=== PATIENT | female | born 1935 | race Caucasian/White ===

== ENCOUNTER 2019-11-18 16:33 | Outpatient (CLI) | payer MEDICARE, SELFPAY ==
--- NOTE | ~2019-11-18 | DEXA_ITS ---
Bone Density Report Name: Kassidy Ham Age: 83 Sex: Female Ethnicity: White Date of : 1935 Indication: osteopenia; height loss; cancer; hysterectomy; Referring Provider: EMILE LUNDY Study: Bone densitometry was performed. Exam Date: August 03, 2019 Accession number: [id number] Bone Density: Region BMD T-score Z-score Classification AP Spine (L1-L4) 0.881 -1.5 1.3 Osteopenia Femoral Neck (Left) 0.603 -2.2 0.2 Osteopenia Total Hip (Left) 0.861 -0.7 1.6 Normal Total Hip Bilateral Avg 0.859 -0.7 1.6 Normal Femoral Neck (Right) 0.648 -1.8 0.6 Osteopenia Total Hip (Right) 0.856 -0.7 1.5 Normal World Health Organization criteria for BMD impression classify patients as: Normal (T-score at or above -1.0), Osteopenia (T-score between -1.0 and -2.5), or Osteoporosis (T-score at or below -2.5). 10-year Fracture Risk(1): Major Osteoporotic Fracture 17% Hip Fracture 5.4% Reported Risk Factors: [place] (), Neck BMD=0.603, BMI=26.3 (1) FRAX(R) Version 3.08. Fracture probability calculated for an untreated patient. Fracture probability may be lower if the patient has received treatment. Previous Exams: Region Exam Age BMD T-score BMD Change BMD Change Date g/cm2 vs Baseline vs Previous AP Spine(L1-L4) 08/03/2019 83 0.881 -1.5 -0.137(-13.5%) -0.034(-3.7%)* 04/16/2017 81 0.915 -1.2 -0.103(-10.1%) 0.000(0.0%)# 09/28/2013 78 0.915 -1.2 -0.103(-10.1%) -0.094(-9.3%)# 04/02/2010 74 1.009 -0.3 -0.010(-0.9%) -0.004(-0.4%) 01/05/2008 72 1.013 -0.3 -0.005(-0.5%) -0.005(-0.5%) 10/16/2005 70 1.018 -0.3 Total Hip(Left) 08/03/2019 83 0.861 -0.7 -0.082(-8.7%)# -0.008(-0.9%) 04/16/2017 81 0.869 -0.6 -0.073(-7.8%)# -0.009(-1.1%)# 09/28/2013 78 0.878 -0.5 -0.064(-6.8%)# -0.019(-2.1%)# 04/02/2010 74 0.897 -0.4 -0.045(-4.8%)* -0.028(-3.1%)* 01/05/2008 72 0.925 -0.1 -0.017(-1.8%) -0.017(-1.8%) 10/16/2005 70 0.942 0.0 Total Hip(Right) 08/03/2019 83 0.856 -0.7 -0.089(-9.4%)# -0.071(-7.7%)* 04/16/2017 81 0.927 -0.1 -0.017(-1.9%)# 0.003(0.3%)# 09/28/2013 78 0.924 -0.1 -0.020(-2.1%)# -0.009(-1.0%)# 04/02/2010 74 0.934 -0.1 -0.011(-1.2%) -0.029(-3.0%)* 01/05/2008 72 0.963 0.2 0.018(1.9%) 0.018(1.9%) 10/16/2005 70 0.944 0.0 *Denotes significance at 95% confidence level, LSC for AP Spine = 0.022 g/cm2, LSC for Total Hip = 0.027 g/cm2 Clinical Information Provided by Patient:
== END 2019-11-18 16:34 | disposition home or self-care (01) ==
LOC: ANHIMG 16:33
PROVIDERS: PCP Family Medicine; Visit Provider Physician Assistant
DX: Z78.0 Asymptomatic menopausal state (principal); M85.88 Other specified disorders of bone density and structure, other site; M85.852 Other specified disorders of bone density and structure, left thigh; M85.851 Other specified disorders of bone density and structure, right thigh
CPT/HCPCS: 77080

== ENCOUNTER 2020-02-22 08:09 | Outpatient (CLI) | payer MEDICARE, SELFPAY ==
--- NOTE | ~2020-02-22 | CT_ITS ---
EXAMINATION: CT abdomen w con INDICATION: Abdominal pain, hyperlipidemia TECHNIQUE: Computed tomographic images of the abdomen were obtained after the administration of 100 c c of Omnipaque 350 intravenous contrast. The dose-length product (DLP) was 150.45 mGy-cm. Automated e xposure control and iterative reconstruction technique were employed. COMPARISON: None FINDINGS: The lung bases are clear. The heart size is normal. The liver, spleen, pancreas, gallbladde r Hypoattenuating lesions in the kidneys, measuring up to 5 mm in the right kidney, are too small to characterize but likely represent cysts. There is calcified atherosclerosis of the aorta and many of the other arteries. There are no pathologically enlarged abdominal lymph nodes. There is no free intr aperitoneal gas or evidence of bowel obstruction. There is severe lumbar spondylosis. IMPRESSION: 1. No CT correlate for the patient's symptoms. Reviewed, dictated and finalized at location A.
[2020-02-22 08:47] LABS: Estimated Glomerular Filt Rate > 60
== END 2020-02-22 08:10 | disposition home or self-care (01) ==
PROVIDERS: PCP Family Medicine; Visit Provider Physician Assistant
DX: E78.5 Hyperlipidemia, unspecified (principal); R10.84 Generalized abdominal pain
CPT/HCPCS: 36415; 74160; Q9967

== ENCOUNTER 2020-04-28 10:39 | Outpatient (CLI) | payer MEDICARE, SELFPAY ==
--- NOTE | ~2020-04-28 | MM_ITS ---
EXAMINATION: MM screening yissel BI w barry HISTORY: Screening mammogram TECHNIQUE: Craniocaudal and mediolateral oblique 3-D tomosynthesis images were obtained and synthetic 2-D images were generated. CAD analysis was submitted and interpreted. COMPARISON: 04/26/2019 bilateral digital screening mammogram 10/23/2018 diagnostic right digital mammogram 04/29/2018 diagnostic right digital mammogram 04/23/2018 bilateral digital screening mammogram BREAST PARENCHYMAL COMPOSITION: There are scattered areas of fibroglandular density. FINDINGS: Status post partial mastectomy on the left for history of breast cancer. There is suggestion of mild interval soft tissue thickening in the postoperative area compared to 04/08 and 04/26/2019. Diagnostic left mammogram is recommended, with ultrasound if required. Otherwise there is no evidence of interval suspicious mass, calcification, or architectural distortio n to suggest malignancy in either breast. There has been no other suspicious interval change. Occasio nal benign calcifications. IMPRESSION: 1. Status post left partial suggestion of mild interval soft tissue thickening in the upper outer fausto drant in the postoperative area since prior examinations.. 2. Diagnostic left mammogram is recommended, with ultrasound if required. BI-RADS Category 0: Incomplete: Needs additional imaging evaluation. Reviewed, dictated and finalized at location A. IMPRESSION: 1. Status post left partial suggestion of mild interval soft tissue thickening in the upper outer quadrant in the postoperative area since prior examinations. . 2. Diagnostic left mammogram is recommended, with ultrasound if required. BI-RADS Category 0: Incomplete: Needs additional imaging evaluation.
== END 2020-04-28 10:40 | disposition home or self-care (01) ==
PROVIDERS: PCP Family Medicine; Visit Provider Physician Assistant
DX: Z12.31 Encounter for screening mammogram for malignant neoplasm of breast (principal); R92.8 Other abnormal and inconclusive findings on diagnostic imaging of breast
CPT/HCPCS: 77063; 77067

== ENCOUNTER 2020-05-19 11:46 | Outpatient (CLI) | payer MEDICARE, SELFPAY ==
--- NOTE | ~2020-05-19 | MM_ITS ---
EXAMINATION: MM diagnostic mammo unilat LT HISTORY: Follow-up left breast asymmetry TECHNIQUE: Additional 3-D tomosynthesis images of the left breast were performed and synthetic 2-D im ages were generated. CAD analysis was submitted and interpreted. COMPARISON: Comparison to multiple prior studies sequentially, with oldest reviewed study dated 04/21. BREAST PARENCHYMAL COMPOSITION: Breast composed of scattered areas of fibroglandular density FINDINGS: . There are no suspicious calcifications or architectural distortion in the left breast to suggest malignancy. Stable architectural distortion of the left breast, consistent with previous lump ectomy. IMPRESSION: 1. No mammographic evidence for malignancy in the left breast. 2. Routine yearly screening mammogram and regular clinical breast examination are recommended. BI-RADS Category 2: Benign finding(s). Reviewed, dictated and finalized at location A. IMPRESSION: 1. No mammographic evidence for malignancy in the left breast. 2. Routine yearly screening mammogram and regular clinical breast examination a re recommended. BI-RADS Category 2: Benign finding(s).
== END 2020-05-19 11:47 | disposition home or self-care (01) ==
LOC: ANHIMG 11:48
PROVIDERS: PCP Family Medicine; Visit Provider Family Medicine
DX: N64.89 Other specified disorders of breast (principal)
CPT/HCPCS: 77065

== ENCOUNTER 2020-09-15 16:15 | Outpatient (CLI) | payer MEDICARE, SELFPAY ==
--- NOTE | ~2020-09-15 | XR_ITS ---
EXAMINATION: XR knee RT 3V DATE: 09/15/2020 16:43 INDICATION: Right knee pain. TECHNIQUE: 3 views of right knee were obtained. COMPARISON: None. FINDINGS: Bone alignment is normal. No fracture. There is mild tricompartmental osteoarthritis. There is chondrocalcinosis of the menisci. There is a small knee joint effusion. IMPRESSION: 1. Mild right knee osteoarthritis. 2. Small right knee joint effusion. Reviewed, dictated and finalized at location A. T RELATIONS COORDINATOR
== END 2020-09-15 16:16 | disposition home or self-care (01) ==
PROVIDERS: PCP Family Medicine; Visit Provider Family Medicine
DX: M25.561 Pain in right knee (principal); M17.11 Unilateral primary osteoarthritis, right knee; M25.461 Effusion, right knee
CPT/HCPCS: 73562

== ENCOUNTER 2020-09-25 10:43 | Outpatient (CLI) | payer MEDICARE, SELFPAY ==
--- NOTE | ~2020-09-25 | US_ITS ---
EXAMINATION: US right upper quadrant EXAM DATE: 09/25/2020 11:44 INDICATION: abdominal pain, generalized . TECHNIQUE: Multiple grayscale and Doppler images of the abdomen right upper quadrant were obtained (b y a technologist who performed the scan) and subsequently reviewed. There is no prior study for nelson solitario. FINDINGS: The pancreatic head and body are normal in appearance. The pancreatic tail is not visualized. The l iver has normal echogenicity and contour. There are no focal liver lesions identified. There is no evidence of intrahepatic biliary duct dilation. Portal venous flow was seen in the hepatopedal, nor mal direction and has normal Doppler waveform. No right-sided hydronephrosis. Common bile duct measures 4 mm, which is normal. The gallbladder wall is normal in thickness, with ex pected amount of distention. No sonographic evidence of pericholecystic fluid. Echogenic structure suspected to be a polyp measuring 6 mm. No cholelithiasis suspected. Technologist performing exam re ports patient did not demonstrate sonographic Walls's sign. Please note that this sign is less reli able in patients who have received pain medication. IMPRESSION: Small gallbladder polyp; recommend 6-12 month follow-up right upper quadrant sonogram. Reviewed, dictated and finalized at location A. ICAL TECHNICIAN
== END 2020-09-25 10:44 | disposition home or self-care (01) ==
PROVIDERS: PCP Family Medicine; Visit Provider Physician Assistant
DX: R10.84 Generalized abdominal pain (principal); K82.4 Cholesterolosis of gallbladder
CPT/HCPCS: 76705

== ENCOUNTER 2021-05-24 15:14 | Outpatient (CLI) | payer MEDICARE, SELFPAY ==
--- NOTE | ~2021-05-24 | MM_ITS ---
EXAMINATION: MM screening yissel BI w barry HISTORY: Screening TECHNIQUE: Craniocaudal and mediolateral oblique 3-D tomosynthesis images were obtained and synthetic 2-D images were generated. CAD analysis was submitted and interpreted. COMPARISON: Comparison to multiple prior studies sequentially, with oldest reviewed study dated 04/23. BREAST PARENCHYMAL COMPOSITION: There are scattered areas of fibroglandular density. FINDINGS: There is no evidence of suspicious mass, calcification, or architectural distortion to sugg est malignancy in either breast. There has been no suspicious interval change. IMPRESSION: 1. No mammographic evidence of malignancy. 2. Recommend routine screening mammography in one year. BI-RADS Category 1: Negative Reviewed, dictated and finalized at location A.
== END 2021-05-24 15:15 | disposition home or self-care (01) ==
PROVIDERS: PCP Family Medicine; Visit Provider Physician Assistant
DX: Z12.31 Encounter for screening mammogram for malignant neoplasm of breast (principal)
CPT/HCPCS: 77063; 77067

== ENCOUNTER 2022-04-15 10:56 | Outpatient (CLI) | payer MEDICARE, SELFPAY ==
--- NOTE | ~2022-04-15 | MMUS_ITS ---
EXAMINATION: MM diagnostic yissel RT w barry, US breast RT limited HISTORY: Palpable lump of the lower inner quadrant of the right breast TECHNIQUE: Craniocaudal, mediolateral, and mediolateral oblique 3-D tomosynthesis images of the right breast were performed and synthetic 2-D images were generated. CAD analysis was submitted and interp reted. High resolution limited right breast ultrasound was performed. COMPARISON: 05/24/2021, 04/28/2020, 04/26/2019 BREAST PARENCHYMAL COMPOSITION: The breasts are heterogeneously dense, which may obscure small masses . FINDINGS: MAMMOGRAPHIC FINDINGS: There is a chronic asymmetry of the inner right breast on the craniocaudal view. No mammographic danial elate is identified for the reported palpable abnormality of concern. ULTRASOUND: There is no evidence of focal abnormal solid or cystic mass in the vicinity of the reported palpable abnormality of concern. IMPRESSION: 1. No specific mammographic or sonographic correlate is identified for the reported palpable abnormal ity of concern. Further evaluation at this time should be based on clinical assessment. Continued fol low-up physical examination is recommended. 2. Recommend annual screening mammography while the patient remains in good health. BI-RADS Category 2: Benign finding(s). Reviewed, dictated and finalized at location A. IMPRESSION: 1. No specific mammographic or sonographic correlate is identified for the repo rted palpable abnormality of concern. Further evaluation at this time should be based on clinical assessment. Continued follow-up physical examination is erwin mmended. 2. Recommend annual screening mammography while the patient remains in good hea lth. BI-RADS Category 2: Benign finding(s).
== END 2022-04-15 10:57 | disposition home or self-care (01) ==
PROVIDERS: PCP Family Medicine; Visit Provider Physician Assistant
DX: N63.14 Unspecified lump in the right breast, lower inner quadrant (principal)
CPT/HCPCS: 76642; 77061; 77065; G0279

== ENCOUNTER 2022-07-26 08:58 | Outpatient (CLI) | payer MEDICARE, SELFPAY ==
--- NOTE | ~2022-07-26 | MM_ITS ---
EXAMINATION: MM screening [facility] BI w barry HISTORY: Screening TECHNIQUE: Craniocaudal and mediolateral oblique 3-D tomosynthesis images were obtained and synthetic 2-D images were generated. CAD analysis was submitted and interpreted. COMPARISON: Comparison to multiple prior studies sequentially, with oldest reviewed study dated 10/23. BREAST PARENCHYMAL COMPOSITION: There are scattered areas of fibroglandular density. FINDINGS: Stable asymmetries and benign appearing breast calcifications. There is no evidence of susp icious mass, calcification, or architectural distortion to suggest malignancy in either breast. There has been no suspicious interval change. IMPRESSION: 1. No mammographic evidence of malignancy. 2. Recommend routine screening mammography in one year. BI-RADS Category 2: Benign finding(s). Reviewed, dictated and finalized at location A. S REPRESENTATIVE AIRCRAFT
== END 2022-07-26 08:59 | disposition home or self-care (01) ==
PROVIDERS: PCP Family Medicine; Visit Provider Physician Assistant
DX: Z12.31 Encounter for screening mammogram for malignant neoplasm of breast (principal)
CPT/HCPCS: 77063; 77067

== ENCOUNTER 2022-11-01 11:55 | Outpatient (CLI) | payer MEDICARE, SELFPAY ==
--- NOTE | ~2022-11-01 | XR_ITS ---
XR knee LT 3V 11/01/2022 12:38 Indication: Left knee pain Procedure: 3 views left knee Comparison: No prior studies for comparison. Findings: There is tricompartment osteoarthritis. There is chondrocalcinosis. Osteopenia. No acute fr acture, subluxation or dislocation. No significant joint effusion. Impression: 1: Mild-moderate tricompartment osteoarthritis of the left knee. Reviewed, dictated and finalized at location B. T RECORDER Impression: 1: Mild-moderate tricompartment osteoarthritis of the left knee.
== END 2022-11-01 11:56 | disposition home or self-care (01) ==
PROVIDERS: PCP Family Medicine; Visit Provider Physician Assistant
DX: M17.12 Unilateral primary osteoarthritis, left knee (principal); M25.562 Pain in left knee
CPT/HCPCS: 73562

== ENCOUNTER 2023-09-30 08:42 | Outpatient (CLI) | payer MEDICARE, SELFPAY ==
--- NOTE | ~2023-09-30 | US_ITS ---
US right upper quadrant INDICATION: Cholesterolosis of the gallbladder PROCEDURE: Realtime right upper abdominal ultrasound. COMPARISON: No prior studies for comparison. FINDINGS: The pancreas is normal without focal mass or pancreatic ductal dilation. Liver echotexture is normal without focal mass or intrahepatic biliary dilatation. There is normal directional flow i n the portal vein. There are gallbladder polyps measuring up to 7 mm. There is gallbladder sludge. Common bile duct phylicia ures 4 mm. No sonographic Walls's sign. IMPRESSION: 1: Gallbladder polyps measuring up to 7 mm. Gallbladder sludge. No definitive gallstones. Reviewed, dictated and finalized at location L. SITTER IMPRESSION: 1: Gallbladder polyps measuring up to 7 mm. Gallbladder sludge. No definitive g allstones.
== END 2023-09-30 08:43 | disposition home or self-care (01) ==
PROVIDERS: PCP Family Medicine; Visit Provider Physician Assistant
DX: K82.4 Cholesterolosis of gallbladder (principal)
CPT/HCPCS: 76705

== ENCOUNTER 2023-10-03 07:57 | Outpatient (CLI) | payer MEDICARE, SELFPAY ==
--- NOTE | ~2023-10-03 | NM_ITS ---
EXAMINATION: NM hepatobiliary wo pharm DATE: 10/03/2023 10:45 INDICATION: Other specified disease of gallbladder. COMPARISON: Ultrasound dated 09/30/2023 TECHNIQUE: 4.9 mCi Tc-99m mebrofenin (Choletec) was administered intravenously. Scintigraphic images of the abdomen were obtained for one hour. At the 1 hour time point, the patient drank 8 oz Ensure, and imaging was continued for 60 minutes. Gallbladder ejection fraction was calculated by the technol ogist. FINDINGS: There is normal clearance of radiotracer from the blood pool. There is homogeneous tracer u ptake by the liver. Activity progresses to the bowel and gallbladder. The gallbladder ejection fract ion (GBEF) is 13%. Note that with this technique, normal GBEF >= 33%. IMPRESSION: 1. Gallbladder ejection fraction is below the normal range which could be seen with gallbladder dysf unction or chronic cholecystitis in the appropriate clinical setting. Reviewed, dictated and finalized at location A. MATIC CORN GRINDER OPERATOR IMPRESSION: 1. Gallbladder ejection fraction is below the normal range which could be seen with gallbladder dysfunction or chronic cholecystitis in the appropriate clini tobi setting.
== END 2023-10-03 07:58 | disposition home or self-care (01) ==
LOC: ANHIMG 07:59
PROVIDERS: PCP Family Medicine; Visit Provider Physician Assistant
DX: K82.8 Other specified diseases of gallbladder (principal)
CPT/HCPCS: 78226; A9537

== ENCOUNTER 2024-04-19 07:40 | Outpatient (CLI) | payer MEDICARE, SELFPAY ==
--- NOTE | ~2024-04-19 | US_ITS ---
EXAMINATION: US abdomen limited DATE: 04/19/2024 08:32 INDICATION: Abnormal findings on diagnostic imaging of the liver TECHNIQUE: Multiple grayscale and Doppler ultrasound images of the abdomen were obtained. COMPARISON: 09/30/2023 FINDINGS: The pancreatic head and body are normal in appearance. The pancreatic tail is not visualized. There is some scattered atherosclerotic plaque along the visualized portion of the normal caliber abdominal aorta. Visualized inferior vena cava is normal. Liver has normal echogenicity and contour, with a sm ooth surface. No liver lesion identified. No intrahepatic biliary duct dilation suspected. Portal sharda ous flow was seen in the hepatopetal, normal direction and has normal Doppler waveform. The gallbladd er is normal in appearance. There are several echogenic nodules along the dependent wall of the gallb ladder which change in position and configuration on the decubitus versus the supine imaging. The lar gest measures 9 mm in maximal diameter with subtle posterior acoustic shadowing consistent with a gal lstone. The remaining smaller nodules are without definitive posterior acoustic shadowing and could r epresent either additional tiny gallstones or sludge. The common bile duct measures 4-5 mm, which is normal. Sonographic Walls sign was reported as negative by the bakery chef. IMPRESSION: 1. Cholelithiasis. Otherwise normal gallbladder with no intrahepatic biliary ductal dilation. Reviewed, dictated and finalized at location A. IMPRESSION: 1. Cholelithiasis. Otherwise normal gallbladder with no intrahepatic biliary du ctal dilation.
== END 2024-04-19 07:41 | disposition home or self-care (01) ==
PROVIDERS: PCP Family Medicine; Visit Provider Surgery
DX: K80.20 Calculus of gallbladder without cholecystitis without obstruction (principal); R93.2 Abnormal findings on diagnostic imaging of liver and biliary tract
CPT/HCPCS: 76705

== ENCOUNTER 2024-04-21 15:41 | Emergency (ER) | payer MEDICARE, SELFPAY ==
--- NOTE | 2024-04-21 15:55 | ED.URI ---
HPI - URI/Sore Throat General Chief Complaint: Upper Respiratory Infection Stated Complaint: possible COVID Time Seen by Provider: 04/21/24 15:55 History of Present Illness HPI Narrative: Patient presents with complaints of body aches, runny nose, cough. Symptoms have been present for 2 days. She reports that she took a COVID test at home, but that it was so she does not trust the results. She is requesting a new COVID test. She denies any shortness of breath. temperature at home upon awakening this morning was 100.5. She reports her worst symptoms are the body aches and runny nose. Voices no other concerns or complaints. Is having moderate relief with darshan Related Data Home Medications Medication Instructions Recorded Confirmed travoprost 0.004 % eye drops 1 drp EACH EYE DAILY 10/23/22 04/21/24 hyoscyamine sulfate 0.125 mg tablet 0.125 mg PO BID 04/21/24 04/21/24 Allergies Allergy/AdvReac Type Severity Reaction Status Date / Time hydrocodone AdvReac Intermediate Swelling Verified 04/21/24 15:47 methazolamide AdvReac Intermediate Swelling Verified 04/21/24 16:02 piroxicam AdvReac Intermediate ANKLE Verified 04/21/24 15:47 SWELLING timolol AdvReac Intermediate RED Verified 04/21/24 15:47 SWOLLEN EYES duloxetine AdvReac Mild Hives Verified 04/21/24 15:47 pollen extracts AdvReac Mild Itching Verified 04/21/24 15:47 DULOXETINE HCL AdvReac Intermediate CONFUSION Uncoded 04/21/24 15:47 Review of Systems Review of Systems: All systems reviewed & are unremarkable except as noted in HPI and below Constitutional: Constitutional: Reports no additional constitutional complaints, Reports body ache(s), Reports fever(s) and Reports headache(s) ENT: Reports system reviewed and no additional complaints, except as documented, Reports nasal congestion and Reports nasal discharge Cardiovascular: Cardiovascular: Reports no additional cardiovascular complaints Respiratory: Respiratory: Reports no additional respiratory complaints Gastrointestinal: Gastrointestinal: Reports no additional gastrointestinal complaints [facility] Past Medical History Medical History Absolute glaucoma, unspecified eye Allergic rhinitis, unspecified Atherosclerotic heart disease of [place] coronary artery without angina pectoris Diverticulosis Fibromyalgia Generalized osteoarthritis History of foot fracture mildly displaced oblique left 5th metatarsal shaft Hyperlipidemia, unspecified Insomnia, unspecified Irritable bowel syndrome with diarrhea Major depressive disorder, recurrent, moderate Personal history of malignant neoplasm of breast left breast Vitamin D deficiency, unspecified Vulvodynia Surgical History Surgical History H/O partial mastectomy left 05/2012 H/O: hysterectomy History of left cataract surgery 05/05/2013 History of right cataract surgery 2012 S/P breast biopsy, left 05/2012 S/P trigger finger release 01/03/2021 Family History Family History Sibling Family history of malignant neoplasm of breast in first degree relative, Onset Age: 58 Social History Social History Smoking status: Former smoker Tobacco type: cigarettes Second hand tobacco smoke exposure: No Smoking end date: 09/08/88 Alcohol intake: never Substance use: never Substance use type: does not use Lack of Transportation: No Lack of Food: Never True Current Housing: I Have Housing Concerned About Future Housing: No Difficulty Paying Gas/Electric Bills: No Difficulty Paying for Meds: No Currently Unemployed: YES Difficulty w/ Childcare or Family Care: No Living arrangements: with family Occupation/Education: retired Gender identity (if verbalized by the patient): Female Sexual O
[2024-04-21 15:56] VITALS: BP 156/68; PULSE 96; RESP 18; TEMP 37.7; O2SAT 99
== END 2024-04-21 16:12 | disposition home or self-care (01) ==
PROVIDERS: Emergency Provider Nurse Practitioner Family; PCP Family Medicine
DX: U07.1 COVID-19 (principal); Z87.891 Personal history of nicotine dependence; I25.10 Atherosclerotic heart disease of native coronary artery without angina pectoris; E78.5 Hyperlipidemia, unspecified; M19.90 Unspecified osteoarthritis, unspecified site; M79.7 Fibromyalgia; H44.519 Absolute glaucoma, unspecified eye; Z85.3 Personal history of malignant neoplasm of breast; Z90.12 Acquired absence of left breast and nipple
CPT/HCPCS: 87426; 99213; G0463

== ENCOUNTER 2025-04-01 13:40 | Outpatient (CLI) | payer MEDICARE, SELFPAY ==
--- NOTE | ~2025-04-01 | MM_ITS ---
EXAMINATION: MM screening [facility] BI w barry HISTORY: Screening TECHNIQUE: Craniocaudal and mediolateral oblique 3-D tomosynthesis images were obtained and synthetic 2-D images were generated. CAD analysis was submitted and interpreted. COMPARISON: Comparison to multiple prior studies sequentially, with oldest reviewed study dated 04/26. BREAST PARENCHYMAL COMPOSITION: Not dense: There are scattered areas of fibroglandular density. FINDINGS: There is no evidence of suspicious mass, calcification, or architectural distortion to sugg est malignancy in either breast. There has been no suspicious interval change. IMPRESSION: 1. No mammographic evidence of malignancy. 2. Recommend routine screening mammography in one year. BI-RADS Category 1: Negative Reviewed, dictated and finalized at location A.
--- OUTSIDE RECORDS SUMMARY | 2025-04-01 13:43 | XMS_ITS | Continuity of Care Document ---
Author Organization [facility] Address [address] [place] [address] Phone Care Team Providers Care Beam Department Supervisor Name Role Phone Johnson Robinson DUNN Unavailable Unavailable Allergies, Adverse Reactions, Alerts Substance Reaction Status Criticality TIMOLOL MALEATE Active No Informati on BRIMONIDINE TARTRATE Active No Info rmation hydrocodone Active No Information piroxicam Active No Information DULOXETINE HCL Active No Informatio n methazolamide Active No Information timolol Active No Information Medications Medication Instructions Dosage Effective Dates (start - stop) Status Comments STOOL SOFTENER (unknown strength) Not Available - Active GAS-X (unknown strength) Not Available - Active pregabalin 25 mg capsule - Active Rhopressa 0.02 % eye drops - Active MAGNESIUM (unknown strength) Not Available - Active DOCUSATE SODIUM (unknown strength) take 1 capsule by oral route every day at bedtime as needed Not Available - Active benzonatate 200 mg capsule take 1 capsule by oral route 3 times every day as needed for cough 200 MG - Active AFRIN (unknown strength) spray 2 spray by intranasal route 2 times every day in each nostril in the morning and evening Not Available - Active Mapap (acetaminophen) 500 mg capsule take 2 capsule by oral route every 6 hours as needed 1000 MG - Active POLYETHYLENE GLYCOL 3350 (unknown strength) Not Available - Active IMODIUM A-D (unknown strength) take 2 capsule by oral route after 1st loose stool, followed by 1 capsule after each subsequent loose stool not to exceed 16 mg/day Not Available - Active MELATONIN (unknown strength) Not Available - Active ULTRA SALINE (unknown strength) Not Available - Active loratadine 10 mg tablet take 1 tablet by oral route every day 10 MG - Active NAC (unknown strength) Not Available - Active Pineapple Extract 100 mg chewable tablet - Active QUERCETIN (unknown strength) Not Available - Active VITAMIN C (unknown strength) Not Available - Active calcium 600 mg (as carbonate)-vitamin D3 20 mcg (800 unit) tablet - Active ARTIFICIAL TEARS (unknown strength) Not Available - Active ursodiol 300 mg capsule take (4MG/KG) by oral route 2 times every day 4 MG/KG - Active pilocarpine 2 % eye drops instill 1 drop by ophthalmic route every 4 hours into affected eye(s) 1.00 drop - Active memantine 10 mg tablet take 1 tablet by oral route 2 times every day 10 MG - Active Celebrex 100 mg capsule take 1 capsule by oral route every day 100 MG - Active flaxseed oil 1,000 mg capsule - Active VITAMIN B-12 (unknown strength) Not Available - Active biotin 10,000 mcg capsule - Active Travatan Z 0.004 % eye drops instill 1 drop by ophthalmic route every day into affected eye(s) in the evening 1.00 drop - Active ibuprofen 200 mg tablet - Active PSEUDOEPHEDRINE HCL (unknown strength) take 2 tablet by oral route every 6 hours as needed Not Available - Active Vitamin D3 25 mcg (1,000 unit) capsule - Active multivitamin tablet - Active CALCIUM (unknown strength) Not Available - Active PROCTOCREAM-HC (unknown strength) Not Available - Active SUDAFED 12 HOUR (unknown strength) Not Available - Active CELEBREX (unknown strength) Not Available - No Longer Active TRAVATAN Z (unknown strength) Not Available - No Longer Active Vitamin B-12 1,000 mcg/mL oral drops - No Longer Active VITAMIN B-12 (unknown strength) Not Available - No Longer Active FLAXSEED OIL (unknown strength) Not Available - No Longer Active BIOTIN (unknown strength) Not Available - No Longer Active Procedures Procedure Date RADEX FNGR MINIMUM 2 VIEWS Drugs unclassified injection Betamethasone acet&sod phosp INJ TENDON SHEATH/LIGAMENT OFFICE/OUTPATIENT VISIT EST OFFICE/OUTPATIENT VISIT EST Drugs unclassified injection Betamethasone acet&sod phosp INJ TENDON SHEATH/LIGAMENT OFFICE/OUTPATIENT VISIT EST Lidocaine injection Betamethasone acet&sod phosp INJ TENDON SHEATH/LIGAMENT Triamcinolone acet inj NOS Drugs unclassified injection INJ TENDON SHEATH/LIGAMENT OFFICE/OUTPATIENT VISIT EST POSTOP FOLLOW-UP VISIT INCISE FINGER TENDON SHEATH OFFICE/OUTPATIENT VISIT EST RADEX OSCAR COMPL MINIMUM 2 VIEWS 020 RADEX OSCAR COMPL MINIMUM 2 VIEWS 020 OFFICE/OUTPATIENT VISIT EST RADEX OSCAR COMPL MINIMUM 2 VIEWS 019 OFFICE/OUTPATIENT VISIT EST RADEX OSCAR COMPL MINIMUM 2 VIEWS 018 OFFICE/OUTPATIENT VISIT EST RADEX OSCAR COMPL MINIMUM 2 VIEWS 017 OFFICE/OUTPATIENT VISIT EST RADEX OSCAR COMPL MINIMUM 2 VIEWS 017 POSTOP FOLLOW-UP VISIT RADEX OSCAR COMPL MINIMUM 2 VIEWS 017 POSTOP FOLLOW-UP VISIT POSTOP FOLLOW-UP VISIT RADEX OSCAR COMPL MINIMUM 2 VIEWS 017 OFFICE/OUTPATIENT VISIT EST MRI ANY JT UXTR C-MATRL RADEX OSCAR COMPL MINIMUM 2 VIEWS 017 OFFICE/OUTPATIENT VISIT EST OFFICE/OUTPATIENT VISIT EST OFFICE/OUTPATIENT VISIT EST POSTOP FOLLOW-UP VISIT OFFICE/OUTPATIENT VISIT EST POSTOP FOLLOW-UP VISIT OFFICE/OUTPATIENT VISIT EST MU Reporting OFFICE/OUTPATIENT VISIT EST Advance Directives Directive Yes / No Effective Date File Name No Information Encounters Encounter Description Practice Location Reason(s) For Visit Diagnoses Date Provider Providers Copied on Encounter [facility], [address], [place], [address], [place] tel:[phone] [facility] No Information 5 Johnson Robinson. [address], [place], [place], [id number], [place]. tel:[phone] OFFICE/OUTPA TIENT VISIT EST [facility], [address], [place], [address], [place] tel:[phone] [facility] Pain in right finger(s)Trig astrid middle finger of right hand 5 Johnson Robinson. [address], [place], [place], [id number], [place]. tel:[phone] Referring Provider: Saji Vale, [address] [place] [address], [address]. tel:[phone] OFFICE/OUTPA TIENT VISIT EST [facility], [address], [place], [address], [place] tel:[phone] [facility] Trigger ring finger of right hand 4 Elizabeth Bowers. [address], [place], [place], [address], [place]. tel:[phone] Referring Provider: Saji Vale, [address] [place] [address], [address]. tel:[phone] OFFICE/OUTPA TIENT VISIT EST [facility], [address], [place], [address], [place] tel:[phone] [facility] Trigger ring finger of right hand 3 Elizabeth Bowers. [address], [place], [place], [id number], [place]. tel:[phone] Referring Provider: Saji Vale, [address] [place], [address]. tel:[phone] OFFICE/OUTPA TIENT VISIT EST [facility], [address] [address], [place], [address], [place] tel:[phone] [facility] Trigger ring finger of right hand 1 Brittny Palacios. [address] [facility], [place], [place], [id number]. tel:[phone] Referring Provider: Saji Vale, [address] [place], [address]. tel:[phone] [facility], [address] [address], [place], [address], [place] tel:[phone] [facility] Trigger thumb, left thumb 1 Brittny Palacios. [address], [place], [id number]. tel:[phone] [facility], [address] [address], [place], [address], [place] tel:[phone] [facility] Trigger thumb, left thumb 1 Brittny Palacios. [address] [facility], [place], [place], [id number]. tel:[phone] OFFICE/OUTPA TIENT VISIT EST [facility], [address] [address], [place], [address], [place] tel:[phone] [facility] Trigger finger of left thumb Dec- 1 Brittny Palacios. [address], [place], [id number]. tel:[phone] OFFICE/OUTPA TIENT VISIT EST [facility], [address] [address], [place], [address], [place] tel:[phone] [facility] Presence of left artificial shoulder jointAftercar e following left shoulder joint replacement surgeryRight shoulder pain, unspecified chronicityImp ingement syndrome of right shoulder Hardeep-0 0 Fady Valadez. [address] [facility] [address], [place], [place], [id number]. tel:[phone] Referring Provider: Saji Vale, [address], [place], [address]. tel:[phone] OFFICE/OUTPA TIENT VISIT EST [facility], [address], [place], [address], [place] tel:[phone] [facility] Aftercare following left shoulder joint replacement surgeryElevat ed blood-pressur e reading, w/o diagnosis of htnPresence of left artificial shoulder joint 9 Jamie Anderson. [address], [place], [place], [address]. tel:[phone] OFFICE/OUTPA TIENT VISIT EST [facility], [address] [facility] [address], [place], [address], [place] tel:[phone] [facility] Aftercare following left shoulder joint replacement surgery 8 Jamie Anderson. [address], [place], [place], [address]. tel:[phone] OFFICE/OUTPA TIENT VISIT EST [facility], [address] [facility] [address], [place], [address], [place] tel:[phone] [facility] Aftercare following left shoulder joint replacement surgery 7 Fady Valadez. [address], [place], [place], [address]. tel:[phone] [facility], [address] [facility] [address], [place], [address], [place] tel:[phone] [facility] Aftercare following left shoulder joint replacement surgery 7 Federico Mai. [address], [place], [place], [address]. tel:[phone] [facility], [address] [facility] [address], [place], [address], [place] tel:[phone] [facility] Aftercare following left shoulder joint replacement surgery May-0 4-201 7 Federico Mai. [address], [place], [place], [address]. tel:[phone] [facility], [address] [facility] [address], [place], [address], [place] tel:[phone] [facility] Aftercare following left shoulder joint replacement surgeryPresen ce of left artificial shoulder joint 7 Fady Valadez. [address], [place], [place], [address]. tel:[phone] [facility], [address] [facility] [address], [place], [address], [place] tel:[phone] [facility] Complete tear of left rotator cuff 7 Fady Valadez. [address], [place], [place], [address]. tel:[phone] OFFICE/OUTPA TIENT VISIT EST [facility], [address] [facility] [facility] [address], [place], [address], [place] tel:[phone] [facility] Complete tear of left rotator cuff 7 Fady Valadez. [address], [place], [place], [address]. tel:[phone] [facility], [address] [facility] [address], [place], [address], [place] tel:[phone] [facility] No Information 7 No Information Referring Provider: Philip Mart, [address], [place], [address]. tel:[phone] OFFICE/OUTPA TIENT VISIT EST [facility], [address] [facility], [place], [address], [place] tel:[phone] [facility] Acute pain of left shoulder 7 Brittny Palacios. [address], [place], [place], [address]. tel:[phone] OFFICE/OUTPA TIENT VISIT EST [facility], [address] [address], [place], [address], [place] tel:[phone] [facility] Acute pain of left shoulder 3 6 Brittny Palacios. [address] [facility], [place], [place], [address]. tel:[phone] OFFICE/OUTPA TIENT VISIT EST [facility], [address] [address], [place], [address], [place] tel:[phone] [facility] Acute pain of left shoulder Nov- 6 Brittny Palacios. [address] [facility], [place], [place], [address]. tel:[phone] OFFICE/OUTPA TIENT VISIT EST [facility], [address] [address], [place], [address], [place] tel:[phone] [facility] Aftercare following surgeryTrigge r finger (acquired)Oscar ulder pain Dec-0 2-201 5 Brittny Palacios. [address] [facility], [place], [place], [address]. tel:[phone] [facility], [address] [address], [place], [address], [place] tel:[phone] [facility] Aftercare following surgeryTrigge r finger (acquired) Oct- 2- 5 Brittny Palacios. [address] [facility], [place], [place], [address]. tel:[phone] OFFICE/OUTPA TIENT VISIT EST [facility], [address] [address], [place], [address], [place] tel:[phone] [facility] Trigger finger (acquired)Oscar ulder pain 6- 5 Brittny Palacios. [address] [facility], [place], [place], [address]. tel:[phone] OFFICE/OUTPA TIENT VISIT EST [facility], [address] [address], [place], [address], [place] tel:[phone] [facility] Trigger finger (acquired) 3 Brittny Palacios. [address] [place], [place], [address]. tel:[phone] [facility], [address] [address], [place], [address], [place] tel:[phone] [facility] bilateral hip pain (chief complaint) Enthesopathy of hip region 2 Brittny Palacios. [address] [facility] [address] , [place], [place], [address]. tel:[phone] [facility], [address] [address], [place], [address], [place] tel:[phone] [facility] Carpal Tunnel SyndromeTrigg er finger (acquired) 2 Brittny Palacios. [address] [facility] [place], [address]. tel:[phone] Family History Family Member Type Diagnosis Age At Onset Sister Problem Cancer, breast Brother Problem (finding) Problem (finding) Family history of multi ple sclerosis Problem (finding) Family history of alzhe braulio's disease Brother Problem Cancer, prostate Mother Problem Cardiovascular disease Problem (finding) Family history of malignant neoplasm of male breast Immunizations Vaccine Date Status Comments Pneumo (2 yrs or older)(PPV) administered Source: Other Provider Payers Payer name Insurance type Covered green party ID Authoriza tion(s) Medicare E2 OT [id number] [employer] OT [id number] Social History Type Description Quantity Date Captured Comments Sex Female Smoking Status No Information Chief Complaint And Reason For Visit No Information Reason For Referral Reason For Referral No Information Plan Of Treatment Date Type Action Status Goal Tobacco cessation counseling completed Goal Tobacco cessation counseling Deleted Goal Tobacco cessation counseling Deleted Goal Tobacco cessation counseling completed Goal Tobacco cessation counseling completed Referral Ordered: RADEX FNGR MINIMUM 2 VIEWS RT middle finger ordered Referral Ordered: RADEX OSCAR COMPL MINIMUM 2 VIEWS RT ordered Referral Ordered: MRI ANY JT UXTR C-MATRL LT shoulder Appointment date/timeframe: 10/02/2016 ordered Referral Ordered: RADEX OSCAR COMPL MINIMUM 2 VIEWS LT shoulder ordered Referral Ordered: RADEX OSCAR COMPL MINIMUM 2 VIEWS LT ordered Referral Ordered: RADEX HIPS BI 2 VIEWS ANTEROPOST PELVIS Bilateral hip ordered History Of Present Illness Encounter Date Complaint History Of Prese nt Illness No Information Functional Status Date Functional Assessmen t No Information Instructions Date Instruction Additional Infor mation Activity as tolerated. Related t o Trigger ring finger of right hand Activity as tolerated. Related t o Trigger thumb, left thumb Weight bearing status as directe d. Related to Right shoulder pain, unspecified chronicity Call for increase in pain Relate d to Right shoulder pain, unspecified chronicity Discussed treatment options Rela aleshia to Right shoulder pain, unspecified chronicity Home exercise program. Related t o Right shoulder pain, unspecified chronicity Weight bearing status as directe d. Related to Aftercare following left shoulder joint replacement surgery Discussed treatment options Rela aleshia to Aftercare following left shoulder joint replacement surgery Weight bearing status as directe d. Related to Aftercare following left shoulder joint replacement surgery Home exercise program. Related t o Aftercare following left shoulder joint replacement surgery Weight bearing status as directe d. Related to Aftercare following left shoulder joint replacement surgery Home exercise program. Related t o Aftercare following left shoulder joint replacement surgery Weight bearing status as directe d. Related to Aftercare following left shoulder joint replacement surgery Weight bearing status as directe d. Related to Aftercare following left shoulder joint replacement surgery Home exercise program. Related t o Aftercare following left shoulder joint replacement surgery Discussed treatment options Rela aleshia to Complete tear of left rotator cuff Weight bearing status as directe d. Related to Complete tear of left rotator cuff Rest, ice and elevate. Related t o Acute pain of left shoulder Rest, ice and elevate. Related t o Shoulder pain Activity as tolerated. Related t o Trigger finger (acquired) Activity as tolerated. Related t o Trigger finger (acquired) Activity as tolerated. Related t o Trigger finger (acquired) Rest, ice and elevate. Related t o Shoulder pain Activity as tolerated Physical activity counseling Rel ated to Dietary surveillance counseling Assessments Type Assessment Date No Information Patient Care Teams Name Effective Dates (start - stop) Status Members No Information
--- OUTSIDE RECORDS SUMMARY | 2025-04-01 13:43 | XMS_ITS | Clinical Summary ---
Author Organization [facility] Address [address] [place] [address] Care Team Providers Care Ship Yard Electrical Person Name Role Phone Saji Magdaleno MD Primary Care Provider Allergies Active Allergy Reactions Criticality Noted Date Comments Acetaminophen-Codeine Other (See Comments) High 11/06 Confused and dropped blood pressure Duloxetine Other (See Comments) Low 12/15/2013 disoriented Duloxetine Hcl Other (See Comments) High 11/20/2016 Caused confusion Methazolamide Other (See Comments) High 12/15/2013 unknown Not known Piroxicam Swelling High 11/20/2016 ankles Timolol Itching Medium 12/15/2013 Red eyes Medications acetaminophen (TYLENOL) 500 mg tablet Take 1,000 mg by mouth. Active amitriptyline (ELAVIL) 25 mg tablet Take 25 mg by mouth. Active azelastine (ASTELIN) 137 mcg/actuation nasal spray 1 [place]. Active biotin 5 mg Capsule Take 5,000 mcg by mouth. Active calcium carb/vit D3/minerals (CALCIUM-VITAMI N D ORAL) Take by mouth. Activ e carboxymethylce llulose (REFRESH LIQUIGEL) 1 % solution 1 Drop. Active celecoxib (CeleBREX) 100 mg capsule Take 100 mg by mouth. Active chlorpheniramin e (CHLOR-TRIMETON ) 4 mg tablet Take 4 mg by mouth. Active cholecalciferol , Vitamin D3, (VITAMIN D3) 1,000 unit Capsule Take 1,000 Units by mouth. Active cyanocobalamin, vitamin B-12, 500 mcg Tablet, Sublingual Place 500 mcg under tongue. Active docusate sodium (COLACE) 100 mg capsule Take 100 mg by mouth. Active flaxseed Oil 1,000 mg Capsule Take 1,000 mg by mouth. Active fluticasone (FLONASE) 50 mcg/spray [place], Suspension 2 Sprays. Active Multivitamin Capsule Take by mouth. Activ e olopatadine (PATADAY) 0.2 % solution 1 Drop. Active simethicone (GAS-X) 125 mg Capsule Take 125 mg by mouth. Active travoprost (TRAVATAN) 0.004 % solution 1 Drop by Intraocular route. Active pseudoephedrine HCl (SUPHEDRINE ORAL) Take by mouth 1 time daily as needed. Active Lactobac no.41/Bifidobac t no.7 (PROBIOTIC-10 ORAL) Take by mouth. Activ e Urea 40 % Cream Apply to affected area. Active estradiol (ESTRACE) 0.01% (0.1 mg/g) vaginal cream Insert vaginally 1 time daily as needed (pt stated she uses it about every 3 months). Active gabapentin (NEURONTIN) 100 mg capsule Take 100 mg by mouth. Active Active Problems Problem Noted Date Diagnosed Date Lump of axillary tail of left breast 04/29/2019 History of antineoplastic chemotherapy 9 Malignant neoplasm of upper- outer quadrant of left breast in female, estrogen receptor negative 11/01/2018 History of external beam radiation therapy 11/01 Microcalcification of right breast on mammogram 04/30/2018 Social History Tobacco Use Types Packs/Day Years Used Date Smoking Tobacco: Former Cigarettes Smokeless Tobacco: Never Alcohol Use Standard Drinks/Week Comments No 0 (1 standard drink = 0.6 oz pur e alcohol) Comments No Sex and Gender Information Value Date Recorded Sex Assigned at Not on file Legal Sex Female 1:01 PM CDT Gender Identity Not on file Sexual Orientation Not on file Last Filed Vital Signs Vital Sign Reading Time Taken Comments Blood Pressure 134/94 04/29/2019 11:29 AM CDT Pulse 107 04/29/2019 11:29 AM CDT Temperature 36.4 C (97.5 F) 04/29/2019 11:29 AM CDT Respiratory Rate - - Oxygen Saturation 97% 04/29/2019 11: 29 AM CDT Inhaled Oxygen Concentration - - Weight 63.4 kg (139 lb 12.8 oz) 019 11:29 AM CDT Height 154.9 cm (5' 1) 04/29/2019 11:2 9 AM CDT Body Mass Index 26.41 04/29/2019 11:29 AM CDT Plan of Treatment Health Maintenance Due Date Last Done Comments DTAP/TDAP/TD VACCINES (1 - Tdap) 1955 PNEUMOCOCCAL VACCINE 50+ YEARS (1 of 1 - PCV) 09/11/18 87 ZOSTER VACCINE (1 of 2) 1986 OSTEOPOROSIS SCREENING 2001 RSV VACCINE (60+ or ) (1 - 1-dose 75+ series) 2011 INFLUENZA VACCINE (#1) 2025 Insurance [facility] [place] [address] [address] [id number] Care Teams Ship Yard Electrical Person Relationship Specialty Start Date End Date Saji Magdaleno MD [address] [place] [address] VICKIE Kaur [phone] PCP - General Family Practice 10/30/18
--- OUTSIDE RECORDS SUMMARY | 2025-04-01 13:43 | XMS_ITS | Referral Summary ---
Author Organization [facility] Address [address] [place] [address] Care Team Providers Care Veterinary Virus Serum Inspector Name Role Phone Kimi Dior DO Unavailable [phone] ShwethaTrinidad ibarra MD Unavailable Saji Magdaleno MD Primary Care Provider [phone] Allergies Active Allergy Reactions Criticality Noted Date Comments Acetaminophen-Codeine Other (See comments),Unknown High 11/20/2016 Confused and dropped blood pressure Confused and dropped blood pressure Confused and dropped blood pressure Beta-Blockers (Beta-Adrenergic Blocking Agts) Unknown 06/15/2013 Brimonidine Tartrate Unknown 02/08/2020 Carbonic Anhydrase Inhibitors Unknown 06/09/2013 Duloxetine Mental status changes,Other (See comments),Unknown High 06/09/2013 disoriented Caused confusion Caused confusion disoriented disoriented Caused confusion disoriented Duloxetine Hcl Unknown 02/13/2023 Hydrocodone Unknown 07/25/2021 Methazolamide Other (See comments),Vision changes High 12/15/2013 Not known unknown Not known unknown Piroxicam Swelling,Unknown High 11/20/2016 ankles ankles ankles Timolol Itching Medium 12/15/2013 Red eyes Red eyes Timolol Maleate Unknown 02/13/2023 Medications travoprost (TRAVATAN Z) 0.004 % drops 02/05/2017Travatan z, drops 0.004 % DropsOUdailyCurrent Medication 02/06/20 17 Active acetaminophen (TYLENOL EXTRA STRENGTH) 500 mg tablet 02/05/2017Tylenol extra strength, po solid 500 mg TabletPOas directedCurrent Medication 02/06/20 17 Active biotin 5 mg capsule Take 1 capsule (1 tablet total) by mouth Ac tive celecoxib (CeleBREX) 100 mg capsule 12/21/19 18 Active calcium carbonate-vit D3-min 600 mg calcium- 400 unit tablet Take by mouth Acti ve pseudoephedri ne HCl (SUDAFED ORAL) Active netarsudiL (Rhopressa) 0.02 % drops 07/28/20 20 Active ibuprofen 200 mg tab/cap Active hyoscyamine (LEVSIN) 0.125 mg tablet 02/13/20 23 Active melatonin 1 mg tablet,disint egrating 08/28/20 22 Active montelukast (SINGULAIR) 10 mg tablet Active pilocarpine (PILOCAR) 2 % ophthalmic solution 08/14/20 24 Active POLYETHYLENE GLYCOL 3350,BULK, MISC Active ursodioL (ACTIGALL) 300 mg capsule Active vitamin B complex capsule Active memantine (NAMENDA) 10 mg tabletIndicat ions:Moderate to Severe Alzheimer's Type Dementia Take 1 tablet (10 mg total) by mouth 2 (two) times a day 90 tablet 3 08/17/20 24 Active Active Problems Problem Noted Date Diagnosed Date Mild late onset Alzheimer's dementia without behavioral disturbance, psychotic disturbance, mood disturbance, or anxiety 06/28/2024 Assessment & Plan (06/28/2024 3:36 PM CDT): Dx: AD Brain MRI, check anti-amyloid candidacy TSH, B12, ApoE Start Namenda Do not prefer Aricept/ Exelon patch d/t IBS hx. 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 Resolved Problems Problem Noted Date Diagnosed Date Resolved Date 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 05/28/2023 Lump of axillary tail of left breast 04/29/201904/202305/28/2023 Malignant neoplasm of upper- outer quadrant of left breast in female, estrogen receptor negative 11/01/2018 02/13/2023 05/28/2023 Microcalcification of right breast on mammogram 04/30/2018 02/13/2023 05/28/2023 Breast cancer, female 04/21/20122022 Immunizations Immunization Administration Dates Next Due Influenza, Unspecified 06/08/2018 Social History Tobacco Use Types Packs/Day Years Used Date Smoking Tobacco: Former Cigarettes 0.5 15 1 950 - 1965 Smokeless Tobacco: Never Tobacco Cessation:Counseling Given: Not Answered Alcohol Use Standard Drinks/Week Comments No 0 (1 standard drink = 0.6 oz pur e alcohol) AUDIT-C Answer Date Recorded Frequency of Alcohol Consumption Never 03/15/2019 Average Number of Drinks Not on file 019 Frequency of Binge Drinking Not on file 04/2019 Comments No Sex and Gender Information Value Date Recorded Sex Assigned at Not on file Legal Sex Female 3:07 AM SHIPPING LEAD Gender Identity Female 03/04/2018 11:56 AM CDT Sexual Orientation Straight 12/01/2020 3: 18 PM CDT Last Filed Vital Signs Vital Sign Reading Time Taken Comments Blood Pressure 162/82 08/12/2024 12:49 PM SHIPPING LEAD Pulse 85 08/12/2024 12:49 PM SHIPPING LEAD Temperature 36.4 C (97.6 F) 08/12/2024 12:49 PM SHIPPING LEAD Respiratory Rate 16 05/28/2023 2:13 PM CDT Oxygen Saturation 97% 05/28/2023 2:13 PM CDT Inhaled Oxygen Concentration - - Weight 52.2 kg (115 lb) 08/12/2024 12:49 PM SHIPPING LEAD Height 152.4 cm (5') 08/12/2024 12:49 PM SHIPPING LEAD Body Mass Index 22.46 08/12/2024 12:49 PM [facility] Plan of Treatment Not on file Medical Devices Implanted Type Area Coal Deliverer Device Identifier Shelf Expiration Date Model / Serial / Lot Left Shoulder Replacement Shoulder Insurance MEDICARE [facility] MEDICARE COMMERCIAL GENERIC VICKIE ESTRADA [id number] MEDICARE [facility] Care Teams Veterinary Virus Serum Inspector Relationship Specialty Start Date End Date Saji Magdaleno MD [address] [place] [address] V[place] DELUNA [id number] PCP - General Family Medicine 07/12/24 Kimi Dior DO Referring Physician General Surgery 02/25/18 Trinidad Tadeo MD [address] [place] [address] Surgeon Breast Surgery 04/11/23
--- OUTSIDE RECORDS SUMMARY | 2025-04-01 13:43 | XMS_ITS | Clinical Summary ---
Author Organization [facility] Address [address] [place] [address] Care Team Providers Care Director Of Materials Management Name Role Phone Kimi Dior DO Unavailable [phone] ShwethaTrinidad ibarra MD Unavailable Saji Magdaleno MD Primary Care Provider [phone] Allergies Active Allergy Reactions Criticality Noted Date [...] of axillary tail of left breast 04/29/2019 06/0 04/202305/28/2023 Malignant neoplasm of upper- outer quadrant of left breast in female, estrogen receptor negative 11/01/2018 02/13/2023 05/28/2023 Microcalcification of right breast on mammogram 04/30/2018 02/13/2023 05/28/2023 Breast cancer, female 04/21/20122022 Immunizations Immunization Administration Dates Next Due Influenza, Unspecified 06/08/2018 Surgical History Surgery Date Site/Laterality Comments CATARACT EXTRACTION Cataract extraction SHOULDER ARTHROPLASTY Left HYSTERECTOMY BREAST LUMPECTOMY Left 1999 MASTECTOMY 09/08/2011 - 09/07/2012 Left TRIGGER FINGER RELEASE Medical History Medical History Date Comments Hx Other Medical hypercholestero lemia; Comments: [facility] 03/18/2014 - Hx Other Medical palpitations; C omments: [facility] 03/18/2014 - Osteoporosis Osteoporosis Hx Other Medical glaucoma; Comme nts: [facility] 03/18/2014 - Hx Other Medical allergic rhinit is; Comments: [facility] 03/18/2014 - Hx Other Medical diverticulosis; Comments: [facility] 03/18/2014 - Hx Other Medical left breast par tial mastectomy; Comments: [facility] 03/18/2014 - Hx Other Medical history breast cancer; Comments: [facility] 03/18/2014 - HL (hearing loss) Foot fracture Insomnia IBS (irritable bowel syndrome) Depression Vitamin D deficiency Family History Medical History Relation Name Comments Alzheimer's disease Father Dementia Mother Stroke Mother BARD1 Sister Elyse Breast cancer Sister Elyse Relation Name Status Comments Father Mother Sister Elyse Alive Social History Tobacco Use Types Packs/Day Years [...] on file Legal Sex Female 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 EDGE 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 Gender Identity Female 03/04/2018 11:56 AM CDT Sexual Orientation Straight 12/01/2020 3: 18 PM CDT Obstetrics History Para Term AB IAB SAB Ectopic Multiple Livin g Live Births 3 2 2 Date Outcome GA Total Labor Labor/2nd/3rd Weight Sex Type Anes PTL Nichelle A1 A5 Name Clin Term Term Last Filed Vital Signs Vital Sign Reading Time Taken Comments Blood Pressure 162/82 08/12/2024 12:49 PM BRIM EDGE TRIMMER Pulse 85 08/12/2024 12:49 PM BRIM EDGE TRIMMER Temperature 36.4 C (97.6 F) 08/12/2024 12:49 PM BRIM EDGE TRIMMER Respiratory Rate 16 05/28/2023 2:13 PM CDT Oxygen Saturation 97% 05/28/2023 2:13 PM CDT Inhaled Oxygen Concentration - - Weight 52.2 kg (115 lb) 08/12/2024 12:49 PM BRIM EDGE TRIMMER Height 152.4 cm (5') 08/12/2024 12:49 PM BRIM EDGE TRIMMER Body Mass Index 22.46 08/12/2024 12:49 PM BRIM EDGE TRIMMER Plan of Treatment Health Maintenance Due Date Last Done Comments Depression Screening 1936 Fall Risk Assessment 1935 Osteoporosis Screening-Bone Density Scan 1936 Hepatitis B Screening 1954 Well Visit 65+ 2001 Pneumococcal vaccine 65+ (2 of 2 - PPSV23) 07/03/2017 07/03/2016 Influenza Vaccine (#1) 2025 , 06/02/2020, 07/27/2019, Additional history exists DTaP/Tdap/Td Vaccine (2 - Td or Tdap) 08/28/2025 08/28/2015 Zoster Vaccine Completed 10/19/2019, 07/09, 02/05/2017, Additional history exists Medical Devices Implanted Type Area Game Programer Device Identifier Shelf Expiration Date Model / Serial / Lot Left Shoulder Replacement Shoulder Insurance MEDICARE [facility] MEDICARE [facility] MEDICARE [facility] Care Teams Director Of Materials Management Relationship Specialty Start Date End Date Saji Magdaleno MD [address] [place] [address] [place] [address] PCP - General Family Medicine 07/12/24 Kimi Dior DO Referring Physician General Surgery 02/25/18 Trinidad Tadeo MD [facility] [address] [place] [address] Surgeon Breast Surgery 04/11/23
--- OUTSIDE RECORDS SUMMARY | 2025-04-01 13:43 | XMS_ITS | Continuity of Care Document ---
Author Organization [facility] Address [address] [place] [address] Phone Care Team Providers Care Personal Companion Name Role Phone Trav Sims MD Unavailable Unavailable Allergies, Adverse Reactions, Alerts Substance Reaction Status Criticality piroxicam Active No Information TIMOLOL MALEATE Active No Informati on hydrocodone Active No Information DULOXETINE HCL Active No Informatio n Medications Medication Instructions Dosage Effective Dates (start - stop) Status Comments Rhopressa 0.02 % eye drops instill 1 drop by ophthalmic route every day into both eyes in the evening - 90 DAY SUPPLY - Active celecoxib 100 mg capsule take 1 capsule by oral route every day 100 MG - Active hyoscyamine sulfate 0.125 mg tablet take 1 tablet by oral route every 4 hours as needed 0.125 MG - Active memantine 10 mg tablet take 1 tablet by oral route 2 times every day 10 MG - Active montelukast 10 mg tablet take 1 tablet by oral route every day in the evening 10 MG - Active pilocarpine 2 % eye drops instill 1 drop by ophthalmic route every 4 hours into affected eye(s) 1.00 drop - Active travoprost 0.004 % eye drops instill 1 drop by ophthalmic route every day into both eyes in the evening 1.00 drop - Active ursodiol 300 mg capsule take (4MG/KG) by oral route 2 times every day 4 MG/KG - Active Align 10.5 mg (10 million cell) chewable tablet take 1 tablet daily - Active biotin 5,000 mcg chewable tablet as needed - Active coconut oil (bulk) 1 TBL per day - Act janice flax seed oil 1000 MG ORAL TABLET take 1 capsule daily - Active ibuprofen 200 mg tablet take 1 tablet by oral route every 6 hours as needed with food 200 MG - Active magnesium 250 mg tablet as needed - Active fish oil ORAL CAPSULE take 2 tablets in the morning, and 1 tablet in the evening - Active Vitamin B-12 500 mcg tablet take 1 tablet daily - Active Rhopressa 0.02 % eye drops instill 1 drop by ophthalmic route every day into both eyes in the evening 1.00 drop - No Longer Active Procedures Procedure Date EYE EXAM & TREATMENT GONIOSCOPY T VISUAL FIELD- EXTENDED [facility] OFFICE/OUTPATIENT VISIT, [facility] Advance Directives Directive Yes / No Effective Date File Name No Information Encounters Encounter Description Practice Location Reason(s) For Visit Diagnoses Date Provider Providers Copied on Encounter [facility], [address] [place] [address], [id number], tel:[phone] [facility] iop check (chief complaint) Primary open angle glaucoma (POAG) of both eyes, severe stagePresence of intraocular lensPrimary open-angle glaucoma, left eye, severe stage [facility] [address] [facility], [place], [place], [id number] , [place]. tel:[phone] Referring Provider: Phoebe dowling, [address], [place], [address]. tel:[phone] [facility], [address] [place] [address], [id number], tel:[phone] [facility] Glaucoma, followup (chief complaint) Primary open angle glaucoma (POAG) of left eye, severe stagePrimary open-angle glaucoma, left eye, mild stage Mar-2 5 Bethany Ravi. [address] [place] [address], [id number] , . tel:[phone] Referring Provider: Phoebe dowling, [address] [place] [address] [facility] [address], [place], [address]. tel:[phone] OFFICE/OUTPAT IENT VISIT, [facility], [id number] [place] [address], [id number], tel:[phone] [facility] glaucoma evaluation (chief complaint) Presence of intraocular lensPrimary open angle glaucoma (POAG) of both eyes, severe stage Nov-0 5 [facility]. [address] [place] [address], [id number] , . tel:[phone] Referring Provider: Phoebe dowling, [address] [place] [address] [facility] [address], [place], [address]. tel:[phone] Family History Family Member Type Diagnosis Age At Onset Problem Family history of glaucoma Payers Payer name Insurance type Covered democrat ID Authorjajaa seamus(s) MEDICARE OF [place] MB [id number] [place] [employer] [id number] Social History Type Description Quantity Date Captured Comments Alcohol Use Details Unknown Caffeine Use Details Unknown Tobacco Use Status Current non-smoker Smoking Status Never smoker Non-Smoking Tobacco Use Details : No Details Available : No Details Available Sex Female Chief Complaint And Reason For Visit From encounter dated '01/13/2025 12:25'. iop check (chief complaint). Description: The 89 year old patient presents for six week iop check. Pt is s/p SLT OD 11/12/24 and OS 12/02/24. Pt is taking Shlomo BID OU (taken 11am today), Travoprost QHS OU (taken at midnight), Rhopressa BID OU (taken 11am today)Denies Headaches, brow aches* pt needs refills on gtts Reason For Referral Reason For Referral No Information Plan Of Treatment Date Type Action Status Appointment Kassidy Ham BOOKED History Of Present Illness Encounter Date Complaint History Of Prese nt Illness iop check The 89 year old patient presents for six week iop check. Pt is s/p SLT OD 11/12/24 and OS 12/02/24. Pt is taking Shlomo BID OU (taken 11am today), Travoprost QHS OU (taken at midnight), Rhopressa BID OU (taken 11am today)Denies Headaches, brow aches* pt needs refills on gtts Glaucoma, followup The 89 year o ld client presents for evaluation of Glaucoma, followup in the right eye and left eye. The onset was gradual. The symptom is constant. The condition is severe. Pt states compliant with drops. Took Shlomo BID OU and rhopressa Qam OU @ 1:15pm. Took Travoprost last night @ midnight. Pt here for SLT OS today. glaucoma evaluation The 89 year old female presents for glaucoma evaluation. PT was referred to Dr. Sims by Dr. hSearer for a glaucoma eval. Denies head/brow aches or eye pressure. Currently taking following drops Travaprost Qam OU, (last used at 5 am), Rhopressa Qd OU (last used at 5:15 am), and Pilocarpine BID OU (last used at 5:30 am), reports consistent use. Functional Status Date Functional Assessmen t No Information Instructions Date Instruction Additional Infor man Impression/Plan Related to Prima ry open angle glaucoma (POAG) of both eyes, severe stage Impression/Plan Related to Prese nce of intraocular lens 6 week IOP check c JG Related to Primary open angle glaucoma (POAG) of left eye, severe stage Impression/Plan Related to Prima ry open angle glaucoma (POAG) of left eye, severe stage RTO Related to Prese nce of intraocular lens Impression/Plan Related to Prima ry open angle glaucoma (POAG) of both eyes, severe stage Impression/Plan Related to Prese nce of intraocular lens Assessments Type Assessment Date assessment Primary open angle glaucoma (POA G) of both eyes, severe stage impression Primary open angle g laucoma (POAG) of both eyes, severe stage: H40.1133 assessment Presence of intraocular lens January impression Presence of intraocular lens: Z9 6.1.S/p YAG Laser OD 03/2020 Patient Care Teams Name Effective Dates (start - stop) Status Members No Information
--- OUTSIDE RECORDS SUMMARY | 2025-04-01 13:43 | XMS_ITS | Clinical Summary ---
Author Organization [facility] Address [address] [place] [address] Care Team Providers Care Industrial Order Clerk Name Role Phone Saji Magdaleno MD Primary Care Provider [phone] Source Comments [facility],non-owned Affiliates and Associated Physician Practices is amultiple site organization consisting of ambulatory clinics and hospital sitesin [place], [place], [place] and [place]. This disclosure is being madepursuant to the Care Everywhere program and may not contain all information available regarding this patient. Last updated 18.[facility] Allergies Active Allergy Reactions Criticality Noted Date Comments Acetaminophen-Codeine Unknown High 11/20/2016 Confused and dropped blood pressure Brimonidine Tartrate Unknown 02/08/2020 Brimonidine Tartrate-Timolol Unknown 021 Cymbalta Other Low 12/15/2013 disoriented Duloxetine Unknown High 12/15/2013 disoriented Caused confusion disoriented Hydrocodone Unknown 07/25/2021 Methazolamide Other Low 12/15/2013 Not known Piroxicam Swelling High 11/20/2016 ankles Timolol Itching Low 12/15/2013 Medications * Be aware that medications may not be up to date on this document. Alwaysverify current medications with the patient. acetaminophen (TYLENOL) 500 MG tablet Take 1,000 mg by mouth Active Biotin 5 MG Take 5,000 mcg by mouth Active celecoxib (CELEBREX) 100 MG capsule 07/23/2021 Active chlorpheniramin e (CHLOR-TRIMETON ) 4 MG tablet Take 4 mg by mouth Active vitamin D3 (CHOLECALCIFERO L) (25 MCG) 1000 UNIT capsule Active Cyanocobalamin 500 MCG Dissolve 500 mcg under the tongue Active Docusate Sodium (DSS) 100 MG Take 100 mg by mouth Active Flaxseed, Linseed, (FLAX SEED OIL) 1000 MG Take 1,000 mg by mouth Active ibuprofen (MOTRIN) 200 MG tablet Active Multiple Vitamin (MULTI-VITAMINS ) TABS Active netarsudil (RHOPRESSA) 0.02 % ophthalmic solution 07/28/2020 Active Simethicone (GAS-X EXTRA STRENGTH) 62.5 MG 12/27/2020 Active travoprost, BRENNEN free, (TRAVATAN Z) 0.004 % ophthalmic solution 12/27/2020 Active Phenylephrine HCl (EQ SUPHEDRINE PE PO) Active calcium carbonate (CALTRATE) 600 MG tablet Take 600 mg by mouth once daily Active Polyethylene Glycol 3350 (CLEARLAX PO) Active amoxicillin (Amoxil) 500 MG capsule TK FOUR CS PO 1 HOUR B DAPP 01/03/2022 Active Cholestyramine 4 GM/DOSE 02/08/2022 Active azelastine (Astelin) 0.1 % nasal spray [place] 1 (one) spray into each nostril 2 times daily 02/08/2022 Active montelukast (Singulair) 10 MG tablet Take 1 (one) tablet by mouth once daily 07/09/2022 Active Active Problems Problem Noted Date Diagnosed Date Family history of breast cancer 05/28/2023 06/10/2023 History of breast cancer 05/28/2023 023 Impingement syndrome of shoulder region 07/25/20 21 Trigger thumb of left hand 07/25/2021 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 Lump of axillary tail of left breast 04/29/2019 History of antineoplastic chemotherapy 9 History of external beam radiation therapy 11/01 Microcalcification of right breast on mammogram 04/30/2018 Malignant neoplasm of upper- outer quadrant of left breast in female, estrogen receptor negative 03/02/2018 Full thickness rotator cuff tear 10/22/2016 Shoulder joint pain 12/08/2014 Acquired trigger finger 09/23/2014 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 Immunizations Immunization Administration Dates Next Due Covid Pfizer primary monoval ent 12+ yr 0.3mL Purple cap 06/28/2021,11/07/2020,10/16/2020 INFLUENZA VACCINE 06/14/2021,06/08/2018 Family History Medical History Relation Name Comments Glaucoma Brother Glaucoma Father Glaucoma Mother Relation Name Status Comments Brother Father Mother Social History Tobacco Use Types Packs/Day Years Used Date Smoking Tobacco: Former Smokeless Tobacco: Never Tobacco Cessation:Counseling Given: Not Answered Alcohol Use Standard Drinks/Week Comments No 0 (1 standard drink = 0.6 oz pur e alcohol) Comments Unknown Sex and Gender Information Value Date Recorded Sex Assigned at Not on file 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 Gender Identity Not on file Sexual Orientation Not on file Last Filed Vital Signs Vital Sign Reading Time Taken Comments Blood Pressure - - Pulse - - Temperature - - Respiratory Rate - - Oxygen Saturation - - Inhaled Oxygen Concentration - - Weight 57.2 kg (126 lb) 06/10/2023 3:06 PM CDT Height 162.6 cm (5' 4) 06/10/2023 3:06 PM CDT Body Mass Index 21.63 06/10/2023 3:06 PM CDT Plan of Treatment Health Maintenance Due Date Last Done Comments BONE DENSITY TESTING 1935 MEDICARE AWV 12 MONTHS 1935 DTAP/TDAP/TD VACCINES (1 - Tdap) 1955 PNEUMOCOCCAL VACCINE 50+ (1 of 1 - PCV) 1986 ZOSTER VACCINE (1 of 2) 1986 Respiratory Syncytial Virus (RSV) Vaccine Pt: or over 60 yrs (1 - 1-dose 75+ series) 2011 COVID-19 VACCINE (2023-2 5 season) 2024 06/28/2021, 11/07/2020, 10/16/2020 DEPRESSION SCREENING 09/08/2024 INFLUENZA VACCINE (#1) 2025 , 06/08/2018 HEPATITIS B VACCINE Aged Out No longe r eligible based on patient's age to complete this topic HIB VACCINE Aged Out No longer eligi ble based on patient's age to complete this topic HPV VACCINE Aged Out No longer eligi ble based on patient's age to complete this topic MENINGOCOCCAL (Group B) VACCINE SHARED DECISION-MAKING Aged Out No longer eligible based on patient's age to complete this topic MENINGOCOCCAL GROUPS A/C/Y/W VACCINE Aged Out No longer eligible b ased on patient's age to complete this topic Insurance MEDICARE [facility] Care Teams Industrial Order Clerk Relationship Specialty Start Date End Date Saji Magdaleno MD [address] [place] [address] VICKIE Morales [address] PCP - General 07/25/21
--- OUTSIDE RECORDS SUMMARY | 2025-04-01 13:43 | XMS_ITS | Encounter Summary ---
Author Organization [facility] Address [address] [place] [address] Phone Care Team Providers Care Photo Editor Name Role Phone Avril Navarro Primary Care Provider [phone] Kimi Dior DO Unavailable [phone] Trinidad Tadeo MD Unavailable [phone] Saji Magdaleno MD Primary Care Provider [phone] Encounter Details Date Type Department Care Team (Late st Contact Info) Description 04/11/2023 Telephone [facility] Oncology [facility] 7th [place] [address] Angelika Huang Social History Tobacco Use Types Packs/Day Years Used Date Smoking Tobacco: Former Cigarettes 0.5 15 1 950 - 1965 Smokeless Tobacco: Never Alcohol Use Standard Drinks/Week Comments No 0 (1 standard drink = 0.6 oz pur e alcohol) AUDIT-C Answer Date Recorded Frequency of Alcohol Consumption Never 03/15/2019 Average Number of Drinks Not on file 019 Frequency of Binge Drinking Not on file 04/2019 Comments Unknown Sex and Gender Information Value Date Recorded Sex Assigned at Not on file Legal Sex Female 3:07 AM [employer] Gender Identity Female 03/04/2018 11:56 AM CDT Sexual Orientation Straight 12/01/2020 3: 18 PM CDT documented as of this encounter Plan of Treatment Not on file documented as of this encounter Visit Diagnoses Not on filedocumented in this encounter Care Teams Photo Editor Relationship Specialty Start Date End Date Avril Navarro PA [address] [place] [address] PCP - General Gastroenterology 01/19/18 07/11/24 Saji Magdaleno MD [address] [place] [address] PCP - General Family Medicine 07/12/24 Kimi Dior DO [address] [place] [address] Referring Physician General Surgery 02/25/18 Trinidad Tadeo MD [address] [place] [address] Surgeon Breast Surgery 04/11/23 documented as of this encounter
--- OUTSIDE RECORDS SUMMARY | 2025-04-01 13:43 | XMS_ITS | Encounter Summary ---
Author Organization [facility] Address [address] [facility] [place] [address] Care Team Providers Care Clearance Representative Name Role Phone Yolis Mosqueda MD Primary Care Provider Saji Magdaleno MD Primary Care Provider [phone] Encounter Details Date Type Department Care Team (Late st Contact Info) Description 03/10/2020 Lab Requisition [facility] [address] [facility] [place] [address] Angelika Marquis DO [address] [facility] [address] [place] [address] Social History Tobacco Use Types Packs/Day Years Used Date Smoking Tobacco: Former Alcohol Use Standard Drinks/Week Comments No 0 (1 standard drink = 0.6 oz pur e alcohol) Comments Unknown Sex and Gender Information Value Date Recorded Sex Assigned at Not on file 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 Gender Identity Not on file Sexual Orientation Not on file documented as of this encounter Plan of Treatment Not on file documented as of this encounter Procedures Procedure Name Priority Date/Time Associated Diagnosis Comments DERMATOPATHOLOGY Routine 03/09/2020 12:0 0 AM CDT documented in this encounter Results * DERMATOPATHOLOGY (03/09/2020 12:00 AM CDT) Case Report Dermatopathology Report Case: [id number] Authorizing Provider: Angelika Marquis DO Collected: 03/09/2020 12:00 AM Ordering Location: [facility] Lab Received: 03/10/2020 06:52 AM Pathologist: Mell Naylor MD Specimen: Skin, right buddhist 0 2:33 PM CDT DERMATOPATHOLOGY LABORATORY Final Diagnosis Specimen A. SKIN, right buddhist: SEBORRHEIC KERATOSIS, MACULAR (L82.1) 0 2:33 PM CDT DERMATOPATHOLOGY LABORATORY at 1433 CDT Clinical History ISK r/o atypia 0 2:33 PM CDT DERMATOPATHOLOGY LABORATORY Gross Description Specimen A: Received is one formalin filled container labeled with the patient's name and designated right buddhist. The specimen consists of a shave biopsy measuring 10x7x1 mm. Jar 0. 0 2:33 PM CDT DERMATOPATHOLOGY LABORATORY Microscopic Description Specimen A. SKIN, right buddhist: Sections show a relatively broad, flat proliferation of small keratinocytes. The surface is gently papillated, and there is increased basilar pigmentation. 0 2:33 PM CDT DERMATOPATHOLOGY LABORATORY Disclaimer An external and internal positive and negative controls are appropriate for the histochemical, immunohistochemical and immunofluorescence stain(s) in this case (if any), except where stated explicitly. The performance characteristics of the stain(s) cited in this report were developed and its performance characteristic determined by the Dermatopathology Laboratory at [facility], directed by Dr. Kathy Gerard. These tests need not be, and therefore are not, approved by the [place] Food and Drug Administration. The tests are used for clinical purposes. Billing Codes Specimen Charges Stain Charges 58719 1 0 2:33 PM CDT DERMATOPATHOLOGY LABORATORY Embedded Images 0 2:33 PM CDT DERMATOPATHOLOGY LABORATORY Pathology/Cytolog y TISSUE SPECIMEN FROM SKIN / Unknown 03/09/2020 03/10/2020 6:52 AM CDT us Angelika Marquis DO LAB - PATHOLOGY/CYTOLOGY ORDERABLES Final Result DERMATOPATHOLOGY LABORATORY [facility] - Department of Dermatology [employer]/[address] [phone] documented in this encounter Visit Diagnoses Not on filedocumented in this encounter Care Teams Clearance Representative Relationship Specialty Start Date End Date Yolis Mosqueda MD [address] [place] [address] PCP - General 03/09/20 07/24/21 Saji Magdaleno MD [address] [place] [address] PCP - General 07/25/21 documented as of this encounter
== END 2025-04-01 13:41 | disposition home or self-care (01) ==
PROVIDERS: PCP Family Medicine; Visit Provider Family Medicine
DX: Z12.31 Encounter for screening mammogram for malignant neoplasm of breast (principal)
CPT/HCPCS: 77063; 77067